=== PATIENT | male | born 1965 ===

== ENCOUNTER 2023-05-17 11:07 | Day surgery (SDC) | payer OTHER ==
[~2023-05-17] VITALS: Ht 180.3 cm; Wt 90.0 kg
[~2023-05-17 11:07] MED LIST: TAMS.4ER
--- NOTE | 2023-05-17 11:32 | NUR ---
05/17/23 1132 MELINDA PACHECO PT VERBALIZED HE HAS BEEN EXPERIENCING SYMPTOMS OF A COLD, WENT TO URGENT CARE TUESDAY AND COVID NEG, ANTIBIOTICS PRESCRIBED AND PT VERBALIZED FEELING BETTER. REPEAT COVID TESTING HERE, AND DR. PEDRAZA NOTIFIED. COVID NEGATIVE.
== END 2023-05-17 13:00 | disposition home or self-care (01) ==
LOC: ORSCSDS 11:07
PROVIDERS: Student in an Organized Health Care Education/Training Program
PROC: 08RK3JZ Replacement of Left Lens with Synthetic Substitute, Percutaneous Approach (ICD-10-PCS; principal; 2023-05-17 12:30)
DX: H25.13 Age-related nuclear cataract, bilateral (principal)
CPT/HCPCS: J2250; J3010; J7040; V2632

== ENCOUNTER 2023-06-07 07:16 | Day surgery (SDC) | payer OTHER ==
[~2023-06-07] VITALS: Ht 180.3 cm; Wt 92.0 kg
[~2023-06-07 07:16] MED LIST changes: +Flomax0.4 MG PO
--- NOTE | 2023-06-07 09:03 | NUR ---
06/07/23 0903 Arvind Patricia IV DCD INTACT, PT TOLERATED WELL
== END 2023-06-07 09:12 | disposition home or self-care (01) ==
LOC: ORSCSDS 07:16
PROVIDERS: Student in an Organized Health Care Education/Training Program
PROC: 08RJ3JZ Replacement of Right Lens with Synthetic Substitute, Percutaneous Approach (ICD-10-PCS; principal; 2023-06-07 08:30)
DX: H25.11 Age-related nuclear cataract, right eye (principal); Z96.1 Presence of intraocular lens
CPT/HCPCS: J2001; J2250; J3010; J7040; V2632